=== PATIENT | male | born 2000 | race Two or more races ===

== ENCOUNTER 2023-09-12 20:55 | Emergency (ER) | payer SELFPAY ==
[~2023-09-12] VITALS: Ht 172.7 cm; Wt 67.1 kg
[2023-09-12 22:48] VITALS: BP 125/73; TEMP 97.9; O2SAT 99
== END 2023-09-12 22:48 | disposition home or self-care (01) ==
LOC: ER 21:04
DX: M54.89 Other dorsalgia (principal); M54.2 Cervicalgia; V43.62XA Car passenger injured in collision with other type car in traffic accident, initial encounter; Y93.89 Activity, other specified; Y92.488 Other paved roadways as the place of occurrence of the external cause; Y99.8 Other external cause status
CPT/HCPCS: 72052-TC; 72070-TC; 72110-TC